=== PATIENT | female | born 1965 | race Caucasian/White ===

== ENCOUNTER 2017-08-02 16:02 | Inpatient (IN) | payer OTHER ==
[2017-08-02] VITALS (13 sets, daily range): BP systolic 78–104; BP diastolic 43–68
[~2017-08-02] VITALS: Ht 157.5 cm; Wt 71.7 kg
[~2017-08-02 16:02] MED LIST: CENTRUM SILVER1 EAC4 PO; FOLIC ACID1 MG PO; KRISTALOSE10 GM PO; LACTULOSE20 GM/30 M PO; LEVAQUIN 500 M500 M4 PO; LEVOTHYROXIN0.137 M1 PO; MULTIVITAMINS PO; PREDNISONE 5 MG5 M1 PO; VERAPAMIL E.R240 M1 PO; VITAMIN B-1100 M1 PO; XIFAXAN550 M1 PO
[2017-08-02] MEDS ORDERED: ZOLOFT50 MG PO (16:18)
[2017-08-02 17:23] LABS: APTT 32.4 Seconds (25.0-31.3); INR 1.7; PROTIME 16.1 Seconds (9.20-11.50)
[2017-08-02 17:46] LABS: URINE BLOOD 2+ (Negative); URINE CLARITY SL CLOUDY; URINE COLOR DARK YELLOW; URINE GLUCOSE-RANDOM NEGATIVE (Negative); URINE KETONES TRACE (Negative); URINE LEUKOCYTES-REFLEX TRACE (Negative); URINE NITRITE-REFLEX NEGATIVE (Negative); URINE PROTEIN 1+ (Negative); URINE UROBILINOGEN 0.2 E.U./dl (0.2-1.0)
[2017-08-02 17:52] LABS: ICTOTEST (BILI CONFIRMATORY) Negative (Negative); URINE BILIRUBIN 1+ (Negative)
[2017-08-02 17:57] LABS: POC CREATININE 0.7 mg/dL (0.6-1.3); POC HEMOGLOBIN 5.4 g/dL (12.0-17.0); POC POTASSIUM 3.5 mmol/L (3.5-4.9)
[2017-08-02 18:09] LABS: BE -8.6 mmol/L (-2 to +3); HCO3 15.7 mmol/L (22.0-26.0); PCO2 27.3 mmHg (35.0-45.0); pH 7.378 (7.340-7.450)
[2017-08-02 18:11] LABS: HYALINE CASTS >10 Many /LPF (None Seen); MUCUS >6 Heavy strn/LPF (None Seen); SQUAMOUS >10 Many /LPF (0-3)
[2017-08-02 18:11] LABS: PO2 138.9 mmHg (75.0-100.0)
[2017-08-02 18:12] LABS: RENAL EPITHELIAL CELLS 0-3 Few /LPF (None Seen)
[2017-08-02 18:13] LABS: MCH 30.5 pg (26.0-34.0); MCHC 33.2 g/dL (28.0-37.0); MCV 91.7 fL (80.0-100.0); MPV 9.9 fl. (7.2-11.1); RBC 1.92 mil/uL (4.20-5.00); RDW-CV 16.6 % (10.5-14.5); WBC 7.9 thou/uL (4.0-11.0)
[2017-08-02 18:14] LABS: CRYSTALS None Seen /LPF (None Seen); URINE RBC 3-10 Few /HPF (0-2); URINE WBC-REFLEX 6-15 Few /HPF (0-5)
[2017-08-02 18:15] LABS: BACTERIA-REFLEX 1-9 Few /HPF (None Seen)
[2017-08-02 18:16] LABS: HEMATOCRIT 17.6 % (37.0-47.0); HEMOGLOBIN 5.8 gm/dL (12.0-15.0)
[2017-08-02 18:23] LABS: ACETAMINOPHEN 4 ug/mL (10-30); ALCOHOL < 10 mg/dL (<10)
[2017-08-02 18:35] LABS: ALBUMIN 2.2 g/dL (3.4-5.0); ALKALINE PHOSPHATASE 111 U/L (46-116); AMMONIA 48 umol/L (11-32); ANION GAP 17 mmol/L (7-16); BUN 62 mg/dL (7-18); CALCIUM 6.5 mg/dL (8.5-10.1); CHLORIDE 105 mmol/L (98-107); CO2 17 mmol/L (21-32); GLUCOSE 119 mg/dL (70-99); LIPASE 43 U/L (73-393); POTASSIUM 3.5 mmol/L (3.5-5.1); SGOT 69 U/L (15-37); SGPT 57 U/L (30-65); SODIUM 139 mmol/L (136-145); TOTAL BILIRUBIN 1.9 mg/dL (<0.1-1.0); TOTAL PROTEIN 4.3 g/dL (6.4-8.2); TROPONIN-I LEVEL <0.06 ng/mL (<0.06)
[2017-08-02 22:33] LABS: HEMATOCRIT 20.3 % (37.0-47.0)
[2017-08-02 22:38] LABS: PHOSPHORUS* 2.3 mg/dL (2.5-4.9)
[2017-08-02 22:41] LABS: MAGNESIUM 0.9 mg/dL (1.8-2.4)
[2017-08-03] VITALS (38 sets, daily range): BP systolic 61–1000; BP diastolic 22–124
[2017-08-03 05:48] LABS: HEMATOCRIT 21.2 % (37.0-47.0); HEMOGLOBIN 7.3 gm/dL (12.0-15.0); MCH 31.7 pg (26.0-34.0); MCHC 34.6 g/dL (28.0-37.0); MCV 91.8 fL (80.0-100.0); MPV 9.9 fl. (7.2-11.1); NUCLEATED RBCS 0 /100WBC; PLATELET COUNT* 52 thou/uL (150-400); RBC 2.31 mil/uL (4.20-5.00); RDW-CV 16.9 % (10.5-14.5); WBC 6.5 thou/uL (4.0-11.0)
[2017-08-03 06:15] LABS: ALBUMIN 2.7 g/dL (3.4-5.0); CALCIUM 6.7 mg/dL (8.5-10.1); CREATININE 0.6 mg/dL (0.6-1.3); PHOSPHORUS* 2.3 mg/dL (2.5-4.9); POTASSIUM 3.3 mmol/L (3.5-5.1); TOTAL BILIRUBIN 2.5 mg/dL (<0.1-1.0)
[2017-08-03 07:23] LABS: ABSOLUTE LYMPHOCYTES 0.3 thou/uL (0.8-5.3); ABSOLUTE NEUTROPHILS 6.2 thou/uL (1.6-8.1)
[2017-08-03 07:24] LABS: PLATELET ESTIMATE ADEQUATE
--- NOTE | 2017-08-03 11:00 | EKG ---
[place] [address] ELECTROCARDIOGRAM REPORT Name: FERNANDO TATUM Room: [address] ADM IN .R.#: [id number] Admission: 08/02/17 Attend Phys: Soniya Osei Discharge: Date of : 63 Report #: [id number] THIS REPORT FOR: //name// [facility] ED Test Date: 2017-08-02 Test Time: 17:03:25 Pat Name: FERNANDO TATUM Department: Room: 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
[2017-08-03 14:11] LABS: HEMATOCRIT 18.9 % (37.0-47.0); HEMOGLOBIN 6.5 gm/dL (12.0-15.0)
[2017-08-03 16:21] LABS: INFLUENZA A ANTIGEN None Detected (None Detect); INFLUENZA B ANTIGEN None Detected (None Detect)
[2017-08-03 22:12] LABS: GLYCOHEMOGLOBIN (HGB A1C) 4.6 % (4.8-5.6)
[2017-08-04] VITALS (13 sets, daily range): BP systolic 95–1408; BP diastolic 41–69
[2017-08-04 03:43] LABS: HEMATOCRIT 23.6 % (37.0-47.0); HEMOGLOBIN 8.1 gm/dL (12.0-15.0); MCH 31.1 pg (26.0-34.0); MCHC 34.4 g/dL (28.0-37.0); MCV 90.5 fL (80.0-100.0); MPV 9.5 fl. (7.2-11.1); RBC 2.61 mil/uL (4.20-5.00); RDW-CV 16.9 % (10.5-14.5); WBC 4.2 thou/uL (4.0-11.0)
[2017-08-04 04:03] LABS: CALCIUM 6.5 mg/dL (8.5-10.1); CREATININE 0.5 mg/dL (0.6-1.3); MAGNESIUM 1.8 mg/dL (1.8-2.4); PHOSPHORUS* 2.3 mg/dL (2.5-4.9)
[2017-08-04 10:24] LABS: HEMATOCRIT 24.5 % (37.0-47.0); HEMOGLOBIN 8.3 gm/dL (12.0-15.0)
[2017-08-04 16:42] LABS: HEMATOCRIT 25.3 % (37.0-47.0); HEMOGLOBIN 8.6 gm/dL (12.0-15.0)
[2017-08-04 22:52] LABS: HEMATOCRIT 26.4 % (37.0-47.0); HEMOGLOBIN 9.1 gm/dL (12.0-15.0)
[2017-08-05] VITALS: BP 134/70
[2017-08-05 04:00] VITALS: BP 145/68
[2017-08-05 05:02] LABS: HEMATOCRIT 26.1 % (37.0-47.0); HEMOGLOBIN 8.8 gm/dL (12.0-15.0); MCH 30.8 pg (26.0-34.0); MCHC 33.8 g/dL (28.0-37.0); MPV 8.7 fl. (7.2-11.1); RBC 2.87 mil/uL (4.20-5.00); RDW-CV 17.2 % (10.5-14.5); WBC 6.7 thou/uL (4.0-11.0)
[2017-08-05 05:06] LABS: INR 1.4; PROTIME 13.4 Seconds (9.20-11.50)
[2017-08-05 05:11] LABS: ALBUMIN 2.7 g/dL (3.4-5.0); CALCIUM 7.2 mg/dL (8.5-10.1); CREATININE 0.6 mg/dL (0.6-1.3); MAGNESIUM 1.7 mg/dL (1.8-2.4); POTASSIUM 3.3 mmol/L (3.5-5.1); TOTAL BILIRUBIN 2.1 mg/dL (<0.1-1.0); TOTAL PROTEIN 5.2 g/dL (6.4-8.2)
[2017-08-05] MEDS ORDERED: PREDNISONE 10 M10 MG PO (07:33)
[2017-08-05] MEDS ORDERED: VITAMIN B-1100 M1 PO (07:33)
[2017-08-05] MEDS ORDERED: PANTOPRAZOLE SO40 M1 PO (07:33)
[2017-08-05 07:51] VITALS: BP 106/57
[2017-08-05 11:35] VITALS: BP 106/57
--- NOTE | 2017-09-03 14:50 | CON ---
[address] [address] CONSULTATION Name: FERNANDO TATUM Room: [address] IN M.R.#: [id number] Admission: 08/02/17 Attend Phys: Soniya Osei Discharge: 08/05/17 Date of : 63 Report #: [id number] THIS REPORT FOR: //name// CC: Julianna Polo DICTATED BY: Jane Morales [facility] DATE OF SERVICE: 08/03/2017 PRIMARY CARE PHYSICIAN: Dr. Julianna Johnson. Please note at the time of this dictation, the patient was seen and physically examined by myself. REASON FOR CONSULTATION: GI bleed. HISTORY OF PRESENT ILLNESS: This 51-year-old female presented to the Emergency Room with chief complaint of having some dark diarrhea as well as some nausea and vomiting. She was feeling weaker than normal. She states she noticed a little bit of some nausea and vomiting on Thursday, some on Thursday and worsened on Thursday with progression of the weakness and feeling somewhat winded with any activity and not having any energy at all. The patient has a longstanding history of alcohol abuse, which she drinks about a pint of vodka a day. It is noted the last time the patient had any endoscopy studies that we can obtain from the patient was back at [place] in 01/2016, in which she was noted to have grade 2 varices were found in the lower third of the esophagus. Four bands were successfully placed with incomplete eradication of the varices. Small hiatal hernia and mild portal hypertensive gastropathy were found in the entire stomach. Duodenum, cardia and gastric fundus were normal to retroflex. She was to return for retreatment in January with [facility] and unaware if she did do any followup. The patient has been very noncompliant, it has been noted in reviewing her information from [facility]. Currently, at the time of this dictation, the patient was very lethargic and groggy and was unable to obtain much of a history from her. Most of the history is obtained from her chart at this time. She has had no further hematemesis and only a smear of some black watery looking stool. ALLERGIES: PENICILLIN. PAST MEDICAL HISTORY: Includes congenital adrenal hyperplasia, alcohol abuse. PAST SURGICAL HISTORY: [place] [address] CONSULTATION Name: ROBERTARTHURFERNANDO Room: [address]#: [id number] Admission: 08/02/17 Attend Phys: Soniya Osei Discharge: 08/05/17 Date of : 63 Report #: [id number] FAMILY HISTORY: Significant for lung cancer in her mother and Alzheimer's in her father. SOCIAL HISTORY: Ongoing alcohol abuse, 1 pint of vodka daily. Denies any illegal drug use or any tobacco use at this time. MEDICATIONS: From home include the prednisone and verapamil. REVIEW OF SYSTEMS: Twelve-point review of systems is essentially negative except what is mentioned in the HPI. PHYSICAL EXAMINATION: VITAL SIGNS: Temperature 37.2, pulse 90, respirations 19, blood pressure 113/47. LABORATORY DATA: Hemoglobin on admission was 5.7. She has received a unit of blood, hemoglobin currently is 7.3, hematocrit 21.2, white count is 6.5, platelets 52. Sodium 139, potassium 3.3, chloride 107, CO2 of 23, BUN is 39, creatinine 0.7, GFR is 105 and glucose is 232. PT is 16.1, INR is 1.7. CT of the abdomen and pelvis reveals enlarged fatty liver with more lobulated density is noted in the right lobe, enlarging right adrenal mass. Total bilirubin is 2.5, alkaline phosphatase is 116, ALT 63, AST is 77. Magnesium was low 0.9. Ammonia 48. B12 is 875. IMPRESSION: 1. Gastrointestinal bleed. 2. Nausea and vomiting. 3. Hematemesis. 4. Acute anemia. 5. Elevated liver function tests. 6. Thrombocytopenia. 7. Alcohol abuse, ongoing. 8. Alcoholic cirrhosis. PLAN: 1. EGD today with Dr. Torres. 2. Continue Protonix and octreotide drip. 3. N.p.o. for now. 4. Monitor for DTs. 5. We will get AFP. Check CBC, CMP, PT, [place] [address] CONSULTATION Name: FERNANDO TATUM Room: [address] IN [facility].#: [id number] Admission: 08/02/17 Attend Phys: Soniya Osei Discharge: 08/05/17 Date of : 63 Report #: [id number] Thank you for allowing us to participate in this patient's care. Please do not hesitate to call with any questions in regard to this consult. <ELECTRONICALLY SIGNED> By: Siva Torres MD 09/03/17 1450 1143 [id number] Torres MD /nt
--- NOTE | 2017-09-03 14:50 | CON ---
[address] [address] CONSULTATION Name: FERNANDO TATUM Room: [address] IN M.R.#: [id number] Admission: 08/02/17 Attend Phys: Soniya Osei Discharge: 08/05/17 Date of : 63 Report #: [id number] THIS REPORT FOR: //name// CC: Julianna Polo DATE OF SERVICE: 08/03/2017 ADDENDUM TO CONSULT #[id number] I have personally seen and examined the patient and reviewed labs and imaging studies. The patient with history of esophageal varices who has been banded in 2016. She presents with thrombocytopenia, elevated liver enzymes secondary to alcoholic liver disease and severe anemia with hemoglobin of 6.5. We will perform upper endoscopy as the patient remains on Protonix and octreotide drip. We will make further recommendation after the upper endoscopy is complete. <ELECTRONICALLY SIGNED> By: Siva Torres MD 09/03/17 1450 1523 [id number] Torres MD /nt
== END 2017-08-05 12:21 | disposition home or self-care (01) | DRG 871 ==
LOC: M.ERS 16:02 → M.ICU 17:09 → M.TBA-ER 17:09 → M.ICU 18:38
PROVIDERS: Family Medicine; Internal Medicine; Internal Medicine Gastroenterology; ADMIT Internal Medicine
PROC: 0DJ08ZZ Inspection of Upper Intestinal Tract, Via Natural or Artificial Opening Endoscopic (ICD-10-PCS; principal; 2017-08-03)
PROC: 30233N1 Transfusion of Nonautologous Red Blood Cells into Peripheral Vein, Percutaneous Approach (ICD-10-PCS; principal; 2017-08-03)
DX: A41.9 Sepsis, unspecified organism (principal); J69.0 Pneumonitis due to inhalation of food and vomit; G92 Toxic encephalopathy; R57.8 Other shock; K27.4 Chronic or unspecified peptic ulcer, site unspecified, with hemorrhage; N39.0 Urinary tract infection, site not specified; K92.2 Gastrointestinal hemorrhage, unspecified; F10.239 Alcohol dependence with withdrawal, unspecified; K76.6 Portal hypertension; I85.00 Esophageal varices without bleeding; K92.0 Hematemesis; K92.1 Melena; I10 Essential (primary) hypertension; K70.30 Alcoholic cirrhosis of liver without ascites; Y90.0 Blood alcohol level of less than 20 mg/100 ml; K31.89 Other diseases of stomach and duodenum; K44.9 Diaphragmatic hernia without obstruction or gangrene; D69.6 Thrombocytopenia, unspecified; D64.9 Anemia, unspecified; Z88.0 Allergy status to penicillin; D50.9 Iron deficiency anemia, unspecified

== ENCOUNTER → 2017-08-21 | Outpatient (CLI) | payer OTHER ==
[~2017-08-21] MED LIST changes: +ATIVAN1 MG PO; +CARAFATE 1 GM TA1 G1 PO; +CEFUROXIME250 MG PO; +K-DUR 20 MEQ T20 MEQ PO; +PANTOPRAZOLE SO40 M1 PO; +PREDNISONE 10 M10 MG PO; +PRILOSEC 10MG C10 MG PO; +SERTRALINE HCL50 MG PO; +THERALITH XR T1 EACH PO; +ZOFRAN4 MG PO; +ZOLOFT50 MG PO
[2017-08-21 17:35] LABS: ABSOLUTE LYMPHOCYTES 0.8 thou/uL (0.8-5.3); ABSOLUTE MONOCYTES 0.7 thou/uL (0.0-1.2); ABSOLUTE NEUTROPHILS 3.3 thou/uL (1.6-8.1); BASOPHILS 0.5 %; EOSINOPHILS 0.8 %; HEMOGLOBIN 10.1 gm/dL (12.0-15.0); MCH 29.5 pg (26.0-34.0); MCHC 32.6 g/dL (28.0-37.0); MCV 90.3 fL (80.0-100.0); MONOCYTES 14.3 %; MPV 7.5 fl. (7.2-11.1); NUCLEATED RBCS 0 /100WBC; PLATELET COUNT* 131 thou/uL (150-400); POLYS 68.4 %; RBC 3.43 mil/uL (4.20-5.00); RDW-CV 17.2 % (10.5-14.5); WBC 4.8 thou/uL (4.0-11.0)
[2017-08-21 17:47] LABS: ALBUMIN 3.4 g/dL (3.4-5.0); CALCIUM 8.3 mg/dL (8.5-10.1); CREATININE 0.6 mg/dL (0.6-1.3); POTASSIUM 3.3 mmol/L (3.5-5.1); TOTAL PROTEIN 6.6 g/dL (6.4-8.2)
[2017-08-21 17:51] LABS: INR 1.1
== END ==
LOC: M.LAB 17:15
PROVIDERS: Nurse Practitioner Adult Health
DX: D64.9 Anemia, unspecified (principal); R74.8 Abnormal levels of other serum enzymes; R79.1 Abnormal coagulation profile

== ENCOUNTER 2017-11-30 10:00 | Emergency (ER) | payer OTHER ==
[~2017-11-30] VITALS: Ht 157.5 cm; Wt 77.1 kg
[~2017-11-30 10:00] MED LIST changes: -ATIVAN1 MG PO; -CARAFATE 1 GM TA1 G1 PO; -CEFUROXIME250 MG PO; -K-DUR 20 MEQ T20 MEQ PO; -PRILOSEC 10MG C10 MG PO; -SERTRALINE HCL50 MG PO; -THERALITH XR T1 EACH PO; -ZOFRAN4 MG PO
[2017-11-30] MEDS ORDERED: SERTRALINE HCL50 MG PO (10:07)
[2017-11-30] MEDS ORDERED: CARAFATE 1 GM TA1 G1 PO (10:07)
[2017-11-30] MEDS ORDERED: PRILOSEC 10MG C10 MG PO (10:08)
[2017-11-30 10:28] LABS: ABSOLUTE LYMPHOCYTES 1.6 thou/uL (0.8-5.3); ABSOLUTE MONOCYTES 0.6 thou/uL (0.0-1.2); ABSOLUTE NEUTROPHILS 6.5 thou/uL (1.6-8.1); BASOPHILS 0.2 %; EOSINOPHILS 0.2 %; HEMOGLOBIN 13.9 gm/dL (12.0-15.0); LYMPHOCYTES 17.9 %; MCH 27.6 pg (26.0-34.0); MCV 83.4 fL (80.0-100.0); MONOCYTES 6.9 %; MPV 7.4 fl. (7.2-11.1); NUCLEATED RBCS 0 /100WBC; PLATELET COUNT* 112 thou/uL (150-400); POLYS 74.8 %; RBC 5.04 mil/uL (4.20-5.00); RDW-CV 17.6 % (10.5-14.5); WBC 8.7 thou/uL (4.0-11.0)
[2017-11-30 10:42] LABS: INR 1.2; PROTIME 11.7 Seconds (9.20-11.50)
[2017-11-30 10:55] LABS: ALBUMIN 4.3 g/dL (3.4-5.0); CALCIUM 8.8 mg/dL (8.5-10.1); CREATININE 0.6 mg/dL (0.6-1.3); POTASSIUM 3.2 mmol/L (3.5-5.1); TOTAL BILIRUBIN 0.8 mg/dL (<0.1-1.0); TOTAL PROTEIN 8.5 g/dL (6.4-8.2)
[2017-11-30] MEDS ORDERED: ZOFRAN4 MG PO (11:14)
[2017-11-30] MEDS ORDERED: ATIVAN1 MG PO (11:14)
[2017-11-30] MEDS ORDERED: K-DUR 20 MEQ T20 MEQ PO (11:14)
[2017-11-30 11:17] VITALS: BP 119/80
--- NOTE | 2017-11-30 15:28 | EKG ---
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 : 1965 Requested By: Rafita Herman Order Number: [id number] Reading MD: Jacob Clark Measurements Intervals [place] Rate: 101 P: 47 CO: 133 QRS: -13 QRSD: 127 T: 20 QT: 356 QTc: 462 Interpretive Statements Sinus tachycardia Nonspecific intraventricular conduction delay Baseline wander in lead(s) V4 Compared to ECG 08/02/2017 17:03:25 Intraventricular conduction delay now present Electronically Signed On 11-30-2017 15:28:42 CDT by Jacob Clark [email or web address] <ELECTRONICALLY SIGNED> By: Jacob Clark MD, [facility] 11/30/17 1528 Jacob Clark MD, [facility] /EPI
== END 2017-11-30 11:17 | disposition home or self-care (01) ==
LOC: M.ERS 10:00
PROVIDERS: Emergency Medicine
DX: K29.70 Gastritis, unspecified, without bleeding (principal); F10.10 Alcohol abuse, uncomplicated; Z88.0 Allergy status to penicillin

== ENCOUNTER 2018-01-26 17:38 | Inpatient (IN) | payer OTHER ==
[~2018-01-26] VITALS: Ht 157.5 cm; Wt 77.6 kg
[~2018-01-26 17:38] MED LIST changes: +ATIVAN1 MG PO; +CARAFATE 1 GM TA1 G1 PO; +K-DUR 20 MEQ T20 MEQ PO; +PRILOSEC 10MG C10 MG PO; +SERTRALINE HCL50 MG PO; +ZOFRAN4 MG PO
[2018-01-26 17:54] VITALS: BP 158/78
[2018-01-26] MEDS ORDERED: THERALITH XR T1 EACH PO (17:59)
[2018-01-26 18:16] LABS: ABSOLUTE LYMPHOCYTES 0.7 thou/uL (0.8-5.3); ABSOLUTE MONOCYTES 0.2 thou/uL (0.0-1.2); BASOPHILS 0.7 %; EOSINOPHILS 0.4 %; HEMATOCRIT 38.1 % (37.0-47.0); HEMOGLOBIN 12.8 gm/dL (12.0-15.0); LYMPHOCYTES 13.4 %; MCH 30.2 pg (26.0-34.0); MCHC 33.6 g/dL (28.0-37.0); MCV 90.1 fL (80.0-100.0); MPV 7.8 fl. (7.2-11.1); NUCLEATED RBCS 0 /100WBC; POLYS 80.5 %; RBC 4.22 mil/uL (4.20-5.00); RDW-CV 18.3 % (10.5-14.5); WBC 4.9 thou/uL (4.0-11.0)
[2018-01-26 18:30] LABS: CREATININE 0.7 mg/dL (0.6-1.3)
[2018-01-26 18:31] LABS: APTT 26.8 Seconds (25.0-31.3); INR 1.2
[2018-01-26 18:34] LABS: ALBUMIN 4.3 g/dL (3.4-5.0); TOTAL BILIRUBIN 2.9 mg/dL (<0.1-1.0); TOTAL PROTEIN 8.2 g/dL (6.4-8.2)
[2018-01-26 18:46] LABS: PLATELET COUNT* 32 thou/uL (150-400)
[2018-01-26 18:54] LABS: ACETAMINOPHEN < 2 ug/mL (10-30); ALCOHOL < 10 mg/dL (<10); SALICYLATE < 2.8 mg/dL (2.8-20.0)
[2018-01-26 19:16] LABS: URINE BLOOD 3+ (Negative); URINE CLARITY CLEAR; URINE COLOR YELLOW; URINE GLUCOSE-RANDOM NEGATIVE (Negative); URINE KETONES TRACE (Negative); URINE LEUKOCYTES-REFLEX 1+ (Negative); URINE PROTEIN 1+ (Negative); URINE SPECIFIC GRAVITY 1.015 (1.005-1.030)
[2018-01-26 19:25] LABS: URINE BILIRUBIN 2+ (Negative); URINE NITRITE-REFLEX POSITIVE (Negative)
[2018-01-26 19:26] LABS: ICTOTEST (BILI CONFIRMATORY) Positive (Negative)
[2018-01-26 19:32] LABS: BACTERIA-REFLEX 1-9 Few /HPF (None Seen); HYALINE CASTS 0-3 Few /LPF (None Seen); MUCUS 4-6 Moderate strn/LPF (None Seen); SQUAMOUS 0-3 Few /LPF (0-3)
[2018-01-26 19:33] LABS: AMP/METHAMP Negative (Negative); BARBITURATES Negative (Negative); BENZODIAZEPINES Negative (Negative); COCAINE Negative (Negative); METHADONE Negative (Negative); OPIATES Negative (Negative); PCP Negative (Negative); THC Negative (Negative)
[2018-01-26 19:34] LABS: CRYSTALS None Seen /LPF (None Seen); YEAST-REFLEX Present (None Seen)
[2018-01-26 19:35] LABS: URINE RBC 0-2 Rare /HPF (0-2); URINE WBC-REFLEX 0-5 Rare /HPF (0-5)
[2018-01-26 21:00] VITALS: BP 135/110
[2018-01-26 21:10] VITALS: BP 113/65
--- NOTE | 2018-01-26 23:19 | NUR ---
ALERT AND ORIENTED X 4 FEMALE PATIENT TO BED 210 BY CART FROM ER IN STABLE CONDITION. ADMISSION ROUTINES IN PROGRESS. VITAL SIGNS STABLE. POTASSIUM REPLACEMENT IN PROGRESS. CONTINUE TO MONITOR.
[2018-01-27] VITALS: BP 125/75
[2018-01-27 04:00] VITALS: BP 144/75
--- NOTE | 2018-01-27 04:33 | NUR ---
PATIENT HAS REMAINED ALERT AND ORIENTED X 4 THROUGHOUT THE NIGHT AND RESTING AT INTERVALS ON HOURLY ROUNDS. UP TO BR TO VOID. GAIT STILL SOMEWHAT SHAKEY BUT IMPROVED. TREMORS ALSO IMPROVING. IVF'S AND POTASSIUM REPLACEMENT INFUSING. NPO AT MIDNIGHT FOR GI CONSULT. VITAL SIGNS STABLE. CONTINUE TO MONITOR.
[2018-01-27 04:50] LABS: HEMATOCRIT 35.2 % (37.0-47.0); HEMOGLOBIN 11.8 gm/dL (12.0-15.0); MCH 30.5 pg (26.0-34.0); MCHC 33.5 g/dL (28.0-37.0); MCV 90.9 fL (80.0-100.0); MPV 9.1 fl. (7.2-11.1); RBC 3.87 mil/uL (4.20-5.00); RDW-CV 18.6 % (10.5-14.5); WBC 3.2 thou/uL (4.0-11.0)
[2018-01-27 05:28] LABS: ALBUMIN 3.5 g/dL (3.4-5.0); CALCIUM 8.6 mg/dL (8.5-10.1); CREATININE 0.5 mg/dL (0.6-1.3); POTASSIUM 3.9 mmol/L (3.5-5.1); TOTAL BILIRUBIN 2.7 mg/dL (<0.1-1.0); TOTAL PROTEIN 6.9 g/dL (6.4-8.2)
[2018-01-27 08:30] VITALS: BP 171/119
[2018-01-27 11:00] VITALS: BP 143/108
--- NOTE | 2018-01-27 13:52 | NUR ---
Pt is A&O. Resides at home with her . Independent with ADLs. No DME. No hx of HH or SNF. Stong ETOH hx, Pt states that she has been going to AA and has resources. Goal is home at ct. Following.
[2018-01-27 16:00] VITALS: BP 141/78
--- NOTE | 2018-01-27 18:05 | NUR ---
ASSUMED PT CARE AT 0700 PT IS ALERT AND ORIENTED X 4 PT DENIES PAIN OR SOA, PT HAS TREMORS WHICH PT STATES ARE NOT NEW HAS HAD THEM, PT IS UP WITH SBA PT IS A FALL RISK BED ALARM IS ON, PT IS SR-ST ON THE MONITOR, PT HAD NAUSEA THIS AM GAVE ZOFRAN NO FURTHER EPISODES SINCE, PT TOLERATES DIET, WILL CONTINUE TO MONITOR
[2018-01-27 20:00] VITALS: BP 147/87
[2018-01-27 21:07] LABS: MAGNESIUM 1.4 mg/dL (1.8-2.4); POTASSIUM 4.1 mmol/L (3.5-5.1)
[2018-01-28] VITALS: BP 122/61
[2018-01-28 04:00] VITALS: BP 124/65
[2018-01-28 04:58] LABS: INR 1.3; PROTIME 12.8 Seconds (9.20-11.50)
[2018-01-28 05:01] LABS: ALBUMIN 3.6 g/dL (3.4-5.0); CALCIUM 8.9 mg/dL (8.5-10.1); CREATININE 0.6 mg/dL (0.6-1.3); MAGNESIUM 1.5 mg/dL (1.8-2.4); POTASSIUM 3.3 mmol/L (3.5-5.1); TOTAL BILIRUBIN 2.8 mg/dL (<0.1-1.0); TOTAL PROTEIN 7.1 g/dL (6.4-8.2)
[2018-01-28 05:05] LABS: HEMATOCRIT 35.5 % (37.0-47.0); HEMOGLOBIN 11.8 gm/dL (12.0-15.0); MCH 30.7 pg (26.0-34.0); MCHC 33.4 g/dL (28.0-37.0); RBC 3.86 mil/uL (4.20-5.00); RDW-CV 18.3 % (10.5-14.5); WBC 3.8 thou/uL (4.0-11.0)
--- NOTE | 2018-01-28 05:24 | NUR ---
PATIENT PROGRESSING TOWARDS GOALS: PATIENT DENIES NAUSEA, PAIN, AND DISCOMFORT THIS SHIFT. PATIENT SCORED 5 ON CIWA THROUGHOUT SHIFT, ALTHOUGH PATIENT STATES HER TREMORS ARE CHRONIC. PATIENT DID NOT SLEEP WELL DESPITE MELATONIN AND BENADRYL, BUT PATIENT STATES SHE HAS INSOMNIA. VSS ON ROOM AIR. 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 HOURLY ROUNDING OBSERVED. CALL LIGHT WITHIN REACH
--- NOTE | 2018-01-28 07:20 | NUR ---
CHANGE OF SHIFT, BEDSIDE REPORT GIVEN PATIENT SEEN AT BEDSIDE, AWAKE SITTING UP AT EDGE OF BED ASSUMED PATIENT CARE
[2018-01-28 08:00] VITALS: BP 134/89
[2018-01-28] MEDS ORDERED: PRILOSEC 10MG C10 MG PO (11:30)
[2018-01-28] MEDS ORDERED: PREDNISONE 5 MG5 M1 PO (11:30)
[2018-01-28] MEDS ORDERED: CEFUROXIME250 MG PO (11:30)
[2018-01-28 12:05] VITALS: BP 156/93
[2018-01-28 12:14] VITALS: BP 156/93
--- NOTE | 2018-01-28 12:40 | NUR ---
PATIENT DISCHARGED TO HOME ALL DISCHARGE INFORMATION GIVEN, ACKNOWLEDGED, AND SIGEND COPIES GIVEN IV AND HEART MONITOR REMOVED PERSONAL BELONGINGS RETURNED ASSISTED OUT VIA WC GOOD CONDITION TO WAITING CAR
--- NOTE | 2018-03-25 13:22 | CON ---
[address] [address] CONSULTATION Name: ROBERTARTHURFERNANDO M Room: [address] IN .R.#: [id number] Admission: 01/26/18 Attend Phys: Evelyn Dawn MD Discharge: 01/28/18 Date of : 63 Report #: [id number] THIS REPORT FOR: //name// CC: [facility] physician/PCP Siva Dawn MD DATE OF SERVICE: 01/28/2018 REASON FOR CONSULTATION: Elevated liver enzymes. CHIEF COMPLAINT: Nausea, vomiting and tremulousness. HISTORY OF PRESENT ILLNESS: This is a very pleasant 52-year-old female with past medical history of alcoholic cirrhosis and active alcohol use, who presented to the hospital on 01/27/2018 with nausea, vomiting and tremulousness. The patient reports that she normally drinks 3 glasses of vodka a day and she has been doing this for in excess of 10 years. About 5-6 days back, the patient decided to quit alcohol and stopped drinking altogether. Following this, she began developing symptoms of increasing irritability, tremulousness and associated with nausea and vomiting. She reports about 3-4 episodes of nausea and vomiting per day and some mild epigastric distress. None of the episodes of vomiting were associated with hematemesis. She reports some loose stools, but without associated hematochezia or melena. CURRENT MEDICAL PROBLEMS: Alcohol abuse, anemia, thrombocytopenia, cirrhosis of the liver and elevated liver enzymes. ALLERGIES: THE PATIENT NOTES ALLERGIES TO PENICILLIN. PAST MEDICAL HISTORY: The patient has a history of congenital adrenal hyperplasia and is steroid dependent. The patient has previous history of esophageal and gastric ulcers. PAST SURGICAL HISTORY: The patient has a previous history of section. FAMILY HISTORY: Reviewed and noncontributory. TOBACCO USE. The patient was never a smoker. ALCOHOL USE: The patient drinks 3 drinks of vodka every day for at least 10 years. REVIEW OF SYSTEMS: GENERAL: The patient reports some [place] [address] CONSULTATION Name: ROBERTARTHURFERNANDO Room: [address]#: [id number] Admission: 01/26/18 Attend Phys: Evelyn Dawn MD Discharge: 01/28/18 Date of : 63 Report #: [id number] HEENT EXAMINATION: Unremarkable. CARDIOVASCULAR EXAMINATION: No chest pain or palpitations. RESPIRATORY EXAMINATION: No shortness of breath. GASTROINTESTINAL: As per HPI. GENITOURINARY: No changes reported. MUSCULOSKELETAL: No joint pain. PSYCHIATRIC: Normal mood and affect. PHYSICAL EXAMINATION: GENERAL: The patient is alert and awake, appears to be in mild distress. HEAD: Normocephalic, atraumatic. EYES: Pupils equal, round and reactive to light and accommodation, with scleral icterus. MOUTH: Mucous membranes moist. NECK: Supple. No JVD. CARDIOVASCULAR EXAMINATION: Rate and rhythm regular. S1, S2 present. PULMONARY EXAMINATION: Chest clear to auscultation bilaterally. ABDOMEN: Soft. No tenderness, no organomegaly. Bowel sounds present. EXTREMITIES: No cyanosis or clubbing. Peripheral pulses normal. PSYCHIATRIC: Appropriate mood and affect. LABORATORY DATA: At the time of admission, the patient's sodium was 138, potassium 3.9, chloride 102, bicarbonate 27, BUN 4, creatinine 0.5 and glucose 87. Total bilirubin is 2.7, AST 186, ALT 133 and alkaline phosphatase 213. PT is 12, INR 1.2. Hemoglobin 11.8, hematocrit 35.2 and platelet count 27,000. ASSESSMENT AND PLAN: This is a 52-year-old female with history of alcohol abuse and alcoholic cirrhosis, who is presenting with nausea, vomiting and tremulousness following abrupt cessation of alcohol use about 5-6 days back. 1. Alcohol withdrawal. 2. Nausea and vomiting. 3. Elevated liver enzymes. 4. Cirrhosis. 5. Portal hypertension. PLAN: Continue to monitor the patient for alcohol withdrawal. I suspect her symptoms are related to alcohol withdrawal and no endoscopic intervention is indicated at this time. The patient had an EGD 6 months back that showed portal hypertensive gastropathy. Due to her decompensated cirrhosis, she will need an EGD every year. The patient will need an ultrasound of liver with Doppler every 6 months to evaluate for development of hepatocellular carcinoma. Alcohol cessation strongly advised. The patient will follow up with [place] [address] CONSULTATION Name: FERNANDO TATUM Room: [address] IN [facility].#: [id number] Admission: 01/26/18 Attend Phys: Evelyn Dawn MD Discharge: 01/28/18 Date of : 63 Report #: [id number] and an outpatient ultrasound has been ordered. The patient also has been scheduled for an EGD in 6 months' time. <ELECTRONICALLY SIGNED> By: Parminder Alfaro MD 03/25/18 1322 1121 [id number] Alfaro MD /nt
== END 2018-01-28 12:40 | disposition home or self-care (01) | DRG 433 ==
LOC: M.ERS 17:38 → M.TBA-ER 19:16 → M.2W 19:16
PROVIDERS: Internal Medicine; Nurse Practitioner Family; ADMIT Internal Medicine
DX: K70.10 Alcoholic hepatitis without ascites (principal); F10.239 Alcohol dependence with withdrawal, unspecified; K76.6 Portal hypertension; D61.818 Other pancytopenia; E27.40 Unspecified adrenocortical insufficiency; N39.0 Urinary tract infection, site not specified; K70.30 Alcoholic cirrhosis of liver without ascites; D69.6 Thrombocytopenia, unspecified; R74.0 Nonspecific elevation of levels of transaminase and lactic acid dehydrogenase [LDH]; Z87.11 Personal history of peptic ulcer disease; Z88.0 Allergy status to penicillin; Z79.899 Other long term (current) drug therapy

== ENCOUNTER 2020-09-17 15:26 | Inpatient (IN) | payer OTHER ==
[~2020-09-17] VITALS: Ht 154.9 cm; Wt 66.6 kg
[~2020-09-17 15:26] MED LIST changes: +CEFUROXIME250 MG PO; +THERALITH XR T1 EACH PO
[2020-09-17 15:46] VITALS: BP 135/74
[2020-09-17 15:58] LABS: ABSOLUTE MONOCYTES 0.7 thou/uL (0.0-1.2); ABSOLUTE NEUTROPHILS 5.2 thou/uL (1.6-8.1); BASOPHILS 0.4 %; EOSINOPHILS 0.4 %; HEMATOCRIT 40.1 % (37.0-47.0); HEMOGLOBIN 13.7 gm/dL (12.0-15.0); LYMPHOCYTES 14.5 %; MCH 33.6 pg (26.0-34.0); MCHC 34.3 g/dL (28.0-37.0); MCV 98.2 fL (80.0-100.0); NUCLEATED RBCS 0 /100WBC; PLATELET COUNT* 136 thou/uL (150-400); POLYS 74.7 %; RBC 4.08 mil/uL (4.20-5.00); RDW-CV 12.9 % (10.5-14.5)
[2020-09-17 16:12] LABS: ALBUMIN 4.5 g/dL (3.4-5.0); CALCIUM 8.8 mg/dL (8.5-10.1); CREATININE 0.7 mg/dL (0.6-1.3); POTASSIUM 3.1 mmol/L (3.5-5.1); TOTAL BILIRUBIN 1.6 mg/dL (<0.1-1.0); TOTAL PROTEIN 7.9 g/dL (6.4-8.2)
[2020-09-17 22:45] VITALS: BP 131/76
[2020-09-17 23:35] VITALS: BP 131/76
[2020-09-18] VITALS (41 sets, daily range): BP systolic 110–142; BP diastolic 59–86
--- NOTE | 2020-09-18 12:54 | EKG ---
[place] [address] ELECTROCARDIOGRAM REPORT Name: ROBJUAN RAMONARTHURFERNANDO Majo Room: [address] IN M.R.#: [id number] Admission: 09/18/20 Attend Phys: Nicolás Polo Discharge: Date of : 63 Date of Service: 09/17/20 1543 Report #: [id number] THIS REPORT FOR: //name// [facility] ED Test Date: 2020-09-17 Test Time: 15:43:39 Pat Name: FERNANDO TATUM Department: Room: [facility] Gender: F A/C Tech: LISSA : 1965 Requested By: Galileo Hoover Order Number: [id number] MD: Jacob Clark Measurements Intervals [place] Rate: 106 P: 59 [place]: 138 QRS: -4 QRSD: 82 T: 51 QT: 355 QTc: 472 Interpretive Statements Sinus tachycardia Abnormal R-wave progression, early transition Compared to ECG 11/30/2017 10:08:24 Intraventricular conduction delay no longer present Electronically Signed On 09-18-2020 12:54:05 CDT by Jacob Clark [email or web address] <ELECTRONICALLY SIGNED> By: Jacob Clark MD, [facility] 09/18/20 1254 1543 1543 Jacob Clark MD, [facility] /EPI
[2020-09-19] VITALS (18 sets, daily range): BP systolic 112–134; BP diastolic 63–83
[2020-09-19 03:11] LABS: HEMATOCRIT 36.8 % (37.0-47.0); HEMOGLOBIN 12.6 gm/dL (12.0-15.0); MCH 33.7 pg (26.0-34.0); MCHC 34.3 g/dL (28.0-37.0); MCV 98.4 fL (80.0-100.0); MPV 7.9 fl. (7.2-11.1); RBC 3.74 mil/uL (4.20-5.00); RDW-CV 12.6 % (10.5-14.5); WBC 6.4 thou/uL (4.0-11.0)
[2020-09-19 03:32] LABS: CALCIUM 8.3 mg/dL (8.5-10.1); CREATININE 0.5 mg/dL (0.6-1.3); POTASSIUM 3.4 mmol/L (3.5-5.1)
[2020-09-20 04:23] LABS: MCH 33.9 pg (26.0-34.0); MCHC 34.3 g/dL (28.0-37.0); MCV 98.6 fL (80.0-100.0); MPV 8.3 fl. (7.2-11.1); RBC 3.85 mil/uL (4.20-5.00); RDW-CV 12.5 % (10.5-14.5); WBC 8.4 thou/uL (4.0-11.0)
[2020-09-20 04:34] LABS: CALCIUM 8.7 mg/dL (8.5-10.1); CREATININE 0.4 mg/dL (0.6-1.3); POTASSIUM 3.4 mmol/L (3.5-5.1)
[2020-09-20 04:37] VITALS: BP 132/76
[2020-09-20 08:07] VITALS: BP 128/80
[2020-09-20 08:31] VITALS: BP 128/80
[2020-09-20 11:50] VITALS: BP 122/81
[2020-09-20 15:57] VITALS: BP 119/79
[2020-09-20 20:06] LABS: MAGNESIUM 1.7 mg/dL (1.8-2.4); POTASSIUM 3.9 mmol/L (3.5-5.1)
[2020-09-21] VITALS: BP 118/74
[2020-09-21 04:24] LABS: HEMATOCRIT 39.1 % (37.0-47.0); HEMOGLOBIN 13.1 gm/dL (12.0-15.0); MCH 33.2 pg (26.0-34.0); MCHC 33.6 g/dL (28.0-37.0); MCV 98.9 fL (80.0-100.0); MPV 8.3 fl. (7.2-11.1); RBC 3.95 mil/uL (4.20-5.00); RDW-CV 12.7 % (10.5-14.5)
[2020-09-21 04:37] LABS: CREATININE 0.5 mg/dL (0.6-1.3); POTASSIUM 3.5 mmol/L (3.5-5.1)
[2020-09-21 04:50] VITALS: BP 180/80
[2020-09-21] MEDS ORDERED: KEPPRA 500 MG500 M1 PO (08:24)
[2020-09-21 08:27] VITALS: BP 120/79
[2020-09-21 12:06] VITALS: BP 120/79
== END 2020-09-21 12:52 | disposition home or self-care (01) | DRG 100 ==
LOC: M.ERS 15:26 → M.TBA-ER 17:55 → M.ICU 23:04 → M.2W 09-19 16:57
PROVIDERS: Emergency Medicine Emergency Medical Services; Family Medicine; ADMIT Internal Medicine; ATTEND Internal Medicine
DX: G40.89 Other seizures (principal); G93.41 Metabolic encephalopathy; K22.10 Ulcer of esophagus without bleeding; F10.239 Alcohol dependence with withdrawal, unspecified; D61.818 Other pancytopenia; K76.6 Portal hypertension; E25.0 Congenital adrenogenital disorders associated with enzyme deficiency; K70.30 Alcoholic cirrhosis of liver without ascites; Y90.9 Presence of alcohol in blood, level not specified; Z20.822 Contact with and (suspected) exposure to COVID-19; Z79.899 Other long term (current) drug therapy; Z98.891 History of uterine scar from previous surgery; Z88.0 Allergy status to penicillin; Z23 Encounter for immunization

== ENCOUNTER 2021-03-21 14:00 | Inpatient (IN) | payer OTHER ==
[~2021-03-21] VITALS: Ht 154.9 cm; Wt 62.1 kg
[~2021-03-21 14:00] MED LIST changes: +KEPPRA 500 MG500 M1 PO
[2021-03-21 14:19] VITALS: BP 142/87
[2021-03-21 15:20] LABS: HEMATOCRIT 40.3 % (37.0-47.0); MCH 33.6 pg (26.0-34.0); MCHC 34.8 g/dL (28.0-37.0); MCV 96.7 fL (80.0-100.0); MPV 6.9 fl. (7.2-11.1); NUCLEATED RBCS 0 /100WBC; PLATELET COUNT* 72 thou/uL (150-400); RBC 4.17 mil/uL (4.20-5.00); RDW-CV 14.8 % (10.5-14.5); WBC 4.7 thou/uL (4.0-11.0)
[2021-03-21 15:24] LABS: CALCIUM 8.3 mg/dL (8.5-10.1); CREATININE 0.7 mg/dL (0.6-1.3); POTASSIUM 3.1 mmol/L (3.5-5.1)
[2021-03-21 15:28] LABS: ALBUMIN 4.5 g/dL (3.4-5.0); TOTAL BILIRUBIN 2.2 mg/dL (<0.1-1.0); TOTAL PROTEIN 7.9 g/dL (6.4-8.2)
[2021-03-21 15:54] LABS: ABSOLUTE LYMPHOCYTES 0.3 thou/uL (0.8-5.3); ABSOLUTE MONOCYTES 0.1 thou/uL (0.0-1.2); ABSOLUTE NEUTROPHILS 4.3 thou/uL (1.6-8.1); PLATELET ESTIMATE DECREASED
[2021-03-21] MEDS ORDERED: ZOFRAN ODT4 MG DISSOLVE (16:05)
[2021-03-21] MEDS ORDERED: NEURONTIN 400400 M1 PO (16:05)
[2021-03-21 17:35] VITALS: BP 111/60
[2021-03-21 18:15] VITALS: BP 111/57
[2021-03-21] MEDS ORDERED: RAYOS5 MG PO (18:37)
[2021-03-21] MEDS ORDERED: EFFEXOR XR75 MG PO (18:38)
[2021-03-21] MEDS ORDERED: KRISTALOSE20 GM PO (18:40)
[2021-03-21 20:00] VITALS: BP 129/66
[2021-03-22] VITALS: BP 128/71
[2021-03-22 04:00] VITALS: BP 134/78
[2021-03-22 08:22] LABS: HEMATOCRIT 36.4 % (37.0-47.0); HEMOGLOBIN 12.5 gm/dL (12.0-15.0); MCH 33.6 pg (26.0-34.0); MCHC 34.3 g/dL (28.0-37.0); MCV 97.8 fL (80.0-100.0); MPV 8.1 fl. (7.2-11.1); RBC 3.72 mil/uL (4.20-5.00); RDW-CV 14.6 % (10.5-14.5); WBC 4.3 thou/uL (4.0-11.0)
[2021-03-22 08:37] VITALS: BP 125/72
[2021-03-22 09:22] LABS: CALCIUM 8.3 mg/dL (8.5-10.1); CREATININE 0.6 mg/dL (0.6-1.3); POTASSIUM 3.8 mmol/L (3.5-5.1)
--- NOTE | 2021-03-22 09:36 | EKG ---
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 : 1965 Requested By: Galileo Hoover Order Number: [id number] MD: Jacob Clark Measurements Intervals [place] Rate: 97 P: 165 [place]: 181 QRS: -1 QRSD: 113 T: 85 QT: 363 QTc: 461 Interpretive Statements Sinus or ectopic atrial rhythm Borderline intraventricular conduction delay Low voltage, extremity leads Marked baseline artifact Compared to ECG 09/17/2020 15:43:39 Sinus rate has slowed and artifact is noted Electronically Signed On 03-22-2021 9:36:29 CDT by Jacob Clark [email or web address] <ELECTRONICALLY SIGNED> By: Jacob Clark MD, [facility] 03/22/21 0936 1455 1455 Jacob Clark MD, [facility] /EPI
[2021-03-22 12:04] VITALS: BP 139/49
--- NOTE | 2021-03-22 14:12 | NUR ---
Pt is A&O. Resides at home with . Independent. No DME. No hx of HH or SNF. Pt agreement to inpt ETOH treatment. [facility] to assist with finding Pt a placement. Pt states that she has been to [facility] in [place] before.
[2021-03-22 17:30] VITALS: BP 122/71
--- NOTE | 2021-03-22 18:09 | NUR ---
PT GIVEN ATIVAN X1 DOSE THIS SHIFT. RESTED COMFORTABLY MOST OF THE DAY. PT HAS ACCEPTANCE TO IN PT REHAB, HAS A BED ON THURSDAY.
[2021-03-22 20:00] VITALS: BP 129/82
[2021-03-23] VITALS: BP 121/56
[2021-03-23 04:00] VITALS: BP 135/76
[2021-03-23 07:51] LABS: CALCIUM 8.1 mg/dL (8.5-10.1); CREATININE 0.5 mg/dL (0.6-1.3)
[2021-03-23 08:00] VITALS: BP 113/75
[2021-03-23 08:08] LABS: HEMATOCRIT 34.3 % (37.0-47.0); HEMOGLOBIN 11.7 gm/dL (12.0-15.0); MCH 33.9 pg (26.0-34.0); MCHC 34.3 g/dL (28.0-37.0); MCV 98.9 fL (80.0-100.0); RBC 3.47 mil/uL (4.20-5.00); RDW-CV 14.4 % (10.5-14.5); WBC 3.5 thou/uL (4.0-11.0)
[2021-03-23] MEDS ORDERED: VITAMIN B-1100 M1 PO (09:47)
[2021-03-23] MEDS ORDERED: PRENATAL PO (09:47)
[2021-03-23] MEDS ORDERED: ATIVAN1 M1 PO (09:47)
[2021-03-23 12:00] VITALS: BP 130/88
[2021-03-23 13:59] VITALS: BP 113/75
--- NOTE | 2021-03-23 14:18 | NUR ---
PT DISCHARGED HOME WITH ALL BELONGINGS ACCOMPANIED BY . PT DENIES PAIN AT DISCHARGE AND WILL FOLLOW UP WITH AA WHEN SHE GETS HOME. [employer] [employer] REMOVED HUB INTACT. PT HAS A GOOD UNDERSTANDING OF DIUSCHARGE INSTRUCTIONS.
== END 2021-03-23 14:30 | disposition home or self-care (01) | DRG 896 ==
LOC: M.ERS 14:00 → M.TBA-ER 16:58 → M.2W 16:58
PROVIDERS: Emergency Medicine Emergency Medical Services; Family Medicine; ADMIT Internal Medicine; ATTEND Internal Medicine
DX: F10.239 Alcohol dependence with withdrawal, unspecified (principal); K85.20 Alcohol induced acute pancreatitis without necrosis or infection; E87.1 Hypo-osmolality and hyponatremia; K76.6 Portal hypertension; D61.818 Other pancytopenia; K22.10 Ulcer of esophagus without bleeding; K70.30 Alcoholic cirrhosis of liver without ascites; E88.81 Metabolic syndrome and other insulin resistance; Z88.0 Allergy status to penicillin; Z79.899 Other long term (current) drug therapy; E87.6 Hypokalemia; Z71.41 Alcohol abuse counseling and surveillance of alcoholic; Z20.822 Contact with and (suspected) exposure to COVID-19; Z86.69 Personal history of other diseases of the nervous system and sense organs